=== PATIENT | female | born 1960 | race Caucasian/White ===

== ENCOUNTER → 2017-05-21 | Outpatient (CLI) | payer BC ==
--- NOTE | 2017-05-21 15:36 | RAD ---
CT of the abdomen and pelvis without contrast 05/21/2017 Indication: Renal stones. Comparison study: None available. Technique: Multidetector CT imaging of the abdomen and pelvis is obtained without the administration of contrast. Discussion: Visualized lung bases demonstrate no acute abnormality. Spleen demonstrates evidence of prior granulomatous disease but is otherwise unremarkable. Liver is grossly unremarkable. Cholelithiasis is noted. The gallbladder is otherwise unremarkable. Adrenal glands are within normal limits. The pancreas is grossly unremarkable. The bilateral kidneys demonstrate no evidence of nephrolithiasis, hydronephrosis, or acute obstructive uropathy. The ureters are normal in course and caliber without ureteral stone or dilatation. The bladder is grossly unremarkable. There is no free air or free fluid in the abdomen or pelvis. There is no evidence of bowel obstruction there is no evidence of acute inflammatory change involving the visualized bowel. Sigmoid colonic diverticulosis is noted. The appendix is visualized and grossly unremarkable. Prior hysterectomy is noted. No acute osseous abnormalities are identified. Impression: No evidence of acute acute abdominal abnormality. No evidence of nephrolithiasis or acute obstructive uropathy. PQRS Compliance Statement: One or more of the following individualized dose reduction techniques were utilized for this examination: 1. Automated exposure control 2. Adjustment of the mA and/or kV according to patient size 3. Use of iterative reconstruction technique
== END | disposition home or self-care (01) ==
LOC: CT 10:03
PROVIDERS: ATTEND Nurse Practitioner
DX: N20.0 Calculus of kidney (principal); D71 Functional disorders of polymorphonuclear neutrophils; I10 Essential (primary) hypertension; I50.9 Heart failure, unspecified
CPT/HCPCS: 74176